=== PATIENT | male | born 1930 | race Caucasian/White ===

== ENCOUNTER 2018-06-19 15:21 | Emergency (ER) | payer OTHER ==
--- NOTE | 2018-06-19 16:52 | RAD REPORT ---
EXAM DESCRIPTION: Luis Single View06/19/2018 4:38 pm CLINICAL HISTORY: Chest pain COMPARISON: 2017 FINDINGS: The lungs appear clear of acute infiltrate. The heart is borderline enlarged IMPRESSION: No acute abnormalities displayed
[2018-06-19 17:04] LABS: Absolute Lymphocytes (CBC) 2.6 K/uL (0.7-4.9); Absolute Monocytes 0.9 K/uL (0.1-1.3); Absolute Neutrophil 3.4 K/uL (1.8-8.0); Eosinophils % 6.7 % (0-4.4); Hematocrit 45.2 % (39.6-49.0); Lymphocytes % 34.8 % (15.3-44.8); MPV 8.4 fL (7.6-11.3); Monocytes % 12.4 % (3.3-12.3); RBC Red Blood Cell Count 4.99 M/uL (4.33-5.43)
[2018-06-19 17:05] LABS: Protime INR 0.93
[2018-06-19 17:40] LABS: ALT/SGPT 21 U/L (12-78); AST/SGOT 15 U/L (15-37); Albumin 3.4 g/dL (3.4-5.0); Alkaline Phosphatase 74 U/L (45-117); BUN Blood Urea Nitrogen 18 mg/dL (7-18); Bicarbonate 29 mmol/L (21-32); Bilirubin Direct 0.1 mg/dL (0-0.2); Bilirubin Total 0.4 mg/dL (0.2-1.0); Glucose Level 135 mg/dL (74-106); Magnesium 2.3 mg/dL (1.8-2.4); NT PRO-BNP 508 pg/mL (<450); Protein, Total 6.8 g/dL (6.4-8.2); Sodium Level 142 mmol/L (136-145); Troponin (Emerg Dept Use Only) < 0.02 ng/mL (0.0-0.045)
--- NOTE | 2018-06-19 18:49 | EDPHYS ---
Physician Documentation [facility] Name: Dixon Roberts Age: 87 yrs Sex: Male : 1930 Arrival Date: 06/19/2018 Time: 15:21 Bed 28 Private MD: Ruddy Stanton F ED Physician Jose Hirsch HPI: 06/19 21:19 This 87 yrs old Male presents to ER via Wheelchair with complaints of Chest gs Pain. 21:19 The patient or guardian reports chest pain that is located primarily in the epigastric gs area. Onset: gradually, this morning. Unable to obtain HPI due to baseline dementia. Historical: - Allergies: 15:36 No Known Allergies; ss - PMHx: 15:36 Dementia; Hypertension; ss - PSHx: 15:36 Cholecystectomy; ss - Immunization history:: Adult Immunizations up to date. - Social history:: Smoking status: Patient/guardian denies using tobacco. - Ebola Screening: : Patient denies exposure to infectious person Patient denies travel to an Ebola-affected area in the 21 days before illness onset. ROS: 21:19 Unable to obtain ROS due to baseline dementia. gs Exam: 21:19 Head/Face: Normocephalic, atraumatic. Eyes: Pupils equal round and reactive to light, gs extra-ocular motions intact. Lids and lashes normal. Conjunctiva and sclera are non-icteric and not injected. Cornea within normal limits. Periorbital areas with no swelling, redness, or edema. ENT: Nares patent. No nasal discharge, no septal abnormalities noted. Tympanic membranes are normal and external auditory canals are clear. Oropharynx with no redness, swelling, or masses, exudates, or evidence of obstruction, uvula midline. Mucous membranes moist. Neck: Trachea midline, no thyromegaly or masses palpated, and no cervical lymphadenopathy. Supple, full range of motion without nuchal rigidity, or vertebral point tenderness. No Meningismus. Chest/axilla: Normal chest wall appearance and motion. Nontender with no deformity. No lesions are appreciated. Cardiovascular: Regular rate and rhythm with a normal S1 and S2. No gallops, murmurs, or rubs. Normal PMI, no JVD. No pulse deficits. Respiratory: Lungs have equal breath sounds bilaterally, clear to auscultation and percussion. No rales, rhonchi or wheezes noted. No increased work of breathing, no retractions or nasal flaring. Abdomen/GI: Soft, non-tender, with normal bowel sounds. No distension or tympany. No guarding or rebound. No evidence of tenderness throughout. Back: No spinal tenderness. No costovertebral tenderness. Full range of motion. Skin: Warm, dry with normal turgor. Normal color with no rashes, no lesions, and no evidence of cellulitis. MS/ Extremity: Pulses equal, no cyanosis. Neurovascular intact. Full, normal range of motion. 21:19 Constitutional: The patient appears alert, awake. 21:19 Neuro: Orientation: to person, Cranial nerves: CN II- XII are normal as tested, Motor: moves all fours, strength is normal, Sensation: no acute changes. 21:19 ECG was reviewed by the Attending Physician. Vital Signs: 15:36 BP 177 / 59; Pulse 46; Resp 18; Temp 98.1(TE); Pulse Ox 97% on R/A; Weight 81.65 kg; ss Height 5 ft. 10 in. (177.80 cm); Pain 5/10; 16:51 BP 145 / 75; Pulse 49; Resp 18 S; Pulse Ox 100% on R/A; ca1 17:59 BP 169 / 103; Pulse 45; Resp 18 S; Pulse Ox 99% on R/A; ca1 18:37 BP 187 / 84; Pulse 48; Resp 20 S; Pulse Ox 97% on R/A; ca1 15:36 Body Mass Index 25.83 (81.65 kg, 177.80 cm) MDM: 16:07 Patient medically screened. gs 21:19 Differential diagnosis: acute myocardial infarction, coronary artery disease chest wall gs pain. Data reviewed: vital signs, nurses notes, lab test result(s), EKG, radiologic studies. Counseling: I had a detailed discussion with the patient and/or guardian regarding: the historical points, exam findings, and any diagnostic results supporting the discharge/admit diagnosis, the need for outpatient follow up. Response to treatment: the patient's condition has returned to base line. Physician consultation: Ruddy Stanton MD regarding patient's condition, and will see patient in office, tomorrow. 06/19 16:12 Order name: Basic Metabolic Panel; Complete Time: 17:55 06/19 16:12 Order name: CBC with Diff; Complete Time: 17:55 06/19 16:12 Order name: LFT's; Complete Time: 17:55 06/19 16:12 Order name: Magnesium; Complete Time: 17:55 06/19 16:12 Order name: NT PRO-BNP; Complete Time: 17:55 06/19 16:12 Order name: PT-INR; Complete Time: 17:55 06/19 16:12 Order name: Troponin (emerg Dept Use Only); Complete Time: 17:55 06/19 16:12 Order name: XRAY Chest (1 view); Complete Time: 17:05 06/19 16:12 Order name: EKG; Complete Time: 16:13 06/19 16:12 Order name: Cardiac monitoring; Complete Time: 16:17 06/19 16:12 Order name: EKG - Nurse/Tech; Complete Time: 16:17 06/19 16:12 Order name: IV Saline Lock; Complete Time: 16:50 06/19 16:12 Order name: Labs collected and sent; Complete Time: 16:50 06/19 16:12 Order name: O2 Per Protocol; Complete Time: 16:17 06/19 16:12 Order name: O2 Sat Monitoring; Complete Time: 16:17 gs EC:19 Rate is 53 beats/min. Rhythm is regular, Sinus bradycardia. IA interval is prolonged. gs QRS interval is normal. QT interval is normal. T waves are Flattened. Clinical impression: NSR w/ Non-specific ST/T Changes. Interpreted by me. Administered Medications: No medications were administered Disposition: 06/19/18 18:49 Discharged to Home. Impression: Chest pain, unspecified. - Condition is Stable. - Discharge Instructions: Nonspecific Chest Pain, Cardiopulmonary Exercise Stress Test. - Medication Reconciliation Form, Thank You Letter, Antibiotic Education, Prescription Opioid Use form. - Follow up: Ruddy Stanton MD; When: Tomorrow; Reason: Re-evaluation by your physician. Signatures: Dispatcher [employer] Mary Harkins RN RN ss Starr, Gregory, MD MD gs Acob, Cheryl, RN RN ca1 Corrections: (The following items were deleted from the chart) 19:03 18:49 06/19/2018 18:49 Discharged to Home. Impression: Chest pain, unspecified. ca1 Condition is Stable. Forms are Medication Reconciliation Form, Thank You Letter, Antibiotic Education, Prescription Opioid Use. Follow up: Ruddy Stanton; When: Tomorrow; Reason: Re-evaluation by your physician. gs
--- NOTE | 2018-06-19 18:49 | ER ---
Nurse's Notes [facility] Name: Dixon Roberts Age: 87 yrs Sex: Male : 1930 Arrival Date: 06/19/2018 Time: 15:21 Bed 28 Private MD: Ruddy Stanton F Diagnosis: Chest pain, unspecified Presentation: 06/19 15:33 Presenting complaint: son reports that patient was at his regular doctor's visit, and ss patient mentioned that he had been having indigestion/ chest discomfort his whole life, but it became worse over the past few days. Dr. Stanton directed patient to come to ER immediately. Transition of care: patient was not received from another setting of care. Onset of symptoms is unknown. Risk Assessment: Do you want to hurt yourself or someone else? Patient reports no desire to harm self or others. Initial Sepsis Screen: Does the patient have a suspected source of infection? No. Patient's initial sepsis screen is negative. Care prior to arrival: None. 15:33 Method Of Arrival: Wheelchair ss 15:33 Acuity: SILAS 3 ss 15:33 Initial Sepsis Screen: Does the patient meet any 2 criteria? No. Patient's initial ca1 sepsis screen is negative. Historical: - Allergies: 15:36 No Known Allergies; ss - PMHx: 15:36 Dementia; Hypertension; ss - PSHx: 15:36 Cholecystectomy; ss - Immunization history:: Adult Immunizations up to date. - Social history:: Smoking status: Patient/guardian denies using tobacco. - Ebola Screening: : Patient denies exposure to infectious person Patient denies travel to an Ebola-affected area in the 21 days before illness onset. Screenin:45 Abuse screen: Denies threats or abuse. Denies injuries from another. Nutritional ca1 screening: No deficits noted. Tuberculosis screening: No symptoms or risk factors identified. Fall Risk IV access (20 points). Ambulatory Aid- Crutches/Cane/Walker (15 pts). Assessment: 15:45 General: Appears in no apparent distress. comfortable, Behavior is calm, cooperative, ca1 appropriate for age. Pain: Complains of pain in chest Pain does not radiate. Pain currently is 0 out of 10 on a pain scale. at worst was 5 out of 10 on a pain scale. Pain: Pain began a week ago as a feeling of indigestion Is intermittent. Neuro: Level of Consciousness is awake, alert, obeys commands, Oriented to person, place, time, situation. Cardiovascular: Heart tones S1 S2 present Capillary refill < 3 seconds Patient's skin is warm and dry. Rhythm is sinus bradycardia. Respiratory: Airway is patent Respiratory effort is even, unlabored, Respiratory pattern is regular, symmetrical, Breath sounds are clear. GI: Abdomen is round non-distended, Bowel sounds present X 4 quads. Abd is soft and non tender X 4 quads. : No deficits noted. No signs and/or symptoms were reported regarding the genitourinary system. EENT: No deficits noted. No signs and/or symptoms were reported regarding the EENT system. Derm: Skin is fragile, is thin, Skin is pink, warm \T\ dry. Musculoskeletal: Circulation, motion, and sensation intact. Capillary refill < 3 seconds. 16:51 Reassessment: Patient appears in no apparent distress at this time. Patient and/or ca1 family updated on plan of care and expected duration. Pain level reassessed. Patient is alert, oriented x 3, equal unlabored respirations, skin warm/dry/pink. 17:59 Reassessment: Patient appears in no apparent distress at this time. Patient and/or ca1 family updated on plan of care and expected duration. Pain level reassessed. Patient is alert, oriented x 3, equal unlabored respirations, skin warm/dry/pink. Patient denies pain at this time. 18:37 Reassessment: Patient appears in no apparent distress at this time. Patient is alert, ca1 oriented x 3, equal unlabored respirations, skin warm/dry/pink. Pt ambulated to restroom. Vital Signs: 15:36 BP 177 / 59; Pulse 46; Resp 18; Temp 98.1(TE); Pulse Ox 97% on R/A; Weight 81.65 kg; ss Height 5 ft. 10 in. (177.80 cm); Pain 5/10; 16:51 BP 145 / 75; Pulse 49; Resp 18 S; Pulse Ox 100% on R/A; ca1 17:59 BP 169 / 103; Pulse 45; Resp 18 S; Pulse Ox 99% on R/A; ca1 18:37 BP 187 / 84; Pulse 48; Resp 20 S; Pulse Ox 97% on R/A; ca1 15:36 Body Mass Index 25.83 (81.65 kg, 177.80 cm) ED Course: 15:21 Patient arrived in ED. as 15:22 Ruddy Stanton MD is Private Physician. as 15:35 Triage completed. ss 15:36 Arm band placed on right wrist. ss 15:40 Jose Hirsch MD is Attending Physician. 15:45 Patient has correct armband on for positive identification. Placed in gown. Bed in low ca1 position. Call light in reach. Side rails up X 1. outdoor adventure guides on. Pulse ox on. NIBP on. Warm blanket given. 15:51 EKG done, by satellite tv technician. reviewed by Jose Hirsch MD. 3 16:04 Thalia Delgado, RN is Primary Nurse. ca1 16:37 XRAY Chest (1 view) In Process Unspecified. EDMS 16:45 Inserted saline lock: 20 gauge in right antecubital area, using aseptic technique. ca1 Blood collected. Patient maintains SpO2 saturation greater than 95% on room air. 18:48 Ruddy Stanton MD is Referral Physician. 19:02 No provider procedures requiring assistance completed. IV discontinued, intact, ca1 bleeding controlled, No redness/swelling at site. Pressure dressing applied. Administered Medications: No medications were administered Outcome: 18:49 Discharge ordered by . gs 19:02 Discharged to home ambulatory, with family. ca1 19:02 Condition: stable 19:02 Discharge instructions given to patient, family, Instructed on discharge instructions, follow up and referral plans. Demonstrated understanding of instructions, follow-up care. 19:03 Patient left the ED. ca1 Signatures: Dispatcher [employer] LORENZAMS Fifi Lerma Shelby, RN RN Jose Hirsch MD MD Kaylee Burroughs [facility] Thalia Delgado RN RN ca1
[2018-06-19 19:30] VITALS: TEMP 98.1
[2018-06-19 19:33] VITALS: BP 187/84; O2SAT 97
== END 2018-06-19 19:03 | disposition home or self-care (01) ==
LOC: ER 15:21
DX: R07.9 Chest pain, unspecified (principal); R00.1 Bradycardia, unspecified
CPT/HCPCS: 36415; 71045; 80048; 80076; 83735; 83880; 84484; 85025; 85610; 93005; 99285